=== PATIENT | female | born 1990 | race Caucasian/White ===

== ENCOUNTER → 2024-03-02 | Outpatient (CLI) | payer BC, SELFPAY ==
[2024-03-05 22:06] LABS: Chlamydia By Nucleic Acid AMP Negative (Negative); Gonococcus By Nucleic Acid AMP Negative (Negative)
[2024-03-09 17:07] LABS: HPV APTIMA, High Risk Positive (Negative)
== END | disposition home or self-care (01) ==
LOC: LABSPEC 15:03
PROVIDERS: Referring Provider Advanced Practice Midwife; Visit Provider Advanced Practice Midwife
DX: O99.210 Obesity complicating pregnancy, unspecified trimester (principal); E66.01 Morbid (severe) obesity due to excess calories; Z3A.00 Weeks of gestation of pregnancy not specified
CPT/HCPCS: 87086; 87088; 87491; 87591; 87624; 88175; G0145

== ENCOUNTER → 2024-03-30 | Outpatient (CLI) | payer BC, SELFPAY ==
[2024-03-30 11:04] LABS: Absolute Neutrophil Count 7.6 X10^3/uL (2.0-7.7); Basophil# 0.06 X10^3/uL; Basophil% 0.6 % (0-1); Eosinophil# 0.22 X10^3/uL; Eosinophils% 2.2 % (0-5); Hematocrit 37.2 % (37-47); Hemoglobin 12.3 g/dL (12.0-15.0); Lymphocyte % 15.9 % (19-41); Mean Corp Hgb Conc 33.1 g/dL (32-36); Mean Corpuscular Hgb 29.9 pg (27.0-32.0); Mean Corpuscular Volume 90.3 fL (81-99); Mean Platelet Vol. 10.6 fl (6.2-12.0); NRBC Flagged by Analyzer 0 % (0-5); Neutrophil # 7.56 X10^3/uL (2.7-7.7); Neutrophil % 74.9 % (47-70); Platelet Count 332 K/mm3 (150-450); RBC Distribution Width CV 12.7 % (11.6-14.6); RBC Distribution Width SD 41.8 fl (35.1-43.9); Red Blood Count 4.12 M/mm3 (4.2-5.4); White Blood Count 10.1 K/mm3 (4.4-11.0)
[2024-03-30 11:55] LABS: HIV - WCH Non-Reactive (Nonreactive); Hepatitis B Surface Antigen Non-Reactive (Nonreactive); Hepatitis C Antibody Non-Reactive (Nonreactive); Rubella IgG Reactive (Nonreactive); Syphilis Antibodies Non-reactive
[2024-03-30 12:35] LABS: Hemoglobin A1c 5.3 % (3.8-5.6)
== END | disposition home or self-care (01) ==
LOC: WOBLAB 08:29
PROVIDERS: Referring Provider Advanced Practice Midwife; Visit Provider Advanced Practice Midwife
DX: E66.01 Morbid (severe) obesity due to excess calories (principal); O09.90 Supervision of high risk pregnancy, unspecified, unspecified trimester
CPT/HCPCS: 36415; 83036; 85025; 86703; 86762; 86780; 86803; 86850; 86900; 86901; 87340

== ENCOUNTER → 2024-06-22 | Outpatient (CLI) | payer BC, SELFPAY ==
[2024-06-22 12:48] LABS: Absolute Neutrophil Count 9.4 X10^3/uL (2.0-7.7); Basophil# 0.05 X10^3/uL; Basophil% 0.4 % (0-1); Eosinophil# 0.16 X10^3/uL; Eosinophils% 1.4 % (0-5); Hematocrit 35.4 % (37-47); Hemoglobin 11.9 g/dL (12.0-15.0); Lymphocyte % 13.7 % (19-41); Mean Corp Hgb Conc 33.6 g/dL (32-36); Mean Corpuscular Hgb 29.5 pg (27.0-32.0); Mean Corpuscular Volume 87.8 fL (81-99); Mean Platelet Vol. 10.4 fl (6.2-12.0); Monocyte# 0.37 X10^3/uL; Monocyte% 3.2 % (0-10); NRBC Flagged by Analyzer 0 % (0-5); Neutrophil # 9.43 X10^3/uL (2.7-7.7); Neutrophil % 80.6 % (47-70); Platelet Count 338 K/mm3 (150-450); RBC Distribution Width CV 13.9 % (11.6-14.6); Red Blood Count 4.03 M/mm3 (4.2-5.4); White Blood Count 11.7 K/mm3 (4.4-11.0)
[2024-06-22 13:03] LABS: Glucose Challenge Gest 1H 50g 169 mg/dL (70-140)
[2024-06-22 13:26] LABS: HIV - WCH Non-Reactive (Nonreactive); Syphilis Antibodies Non-reactive
== END | disposition home or self-care (01) ==
LOC: BWCLAB 11:25
PROVIDERS: Visit Provider Advanced Practice Midwife
DX: O09.90 Supervision of high risk pregnancy, unspecified, unspecified trimester (principal); Z13.1 Encounter for screening for diabetes mellitus; Z3A.00 Weeks of gestation of pregnancy not specified
CPT/HCPCS: 36415; 82950; 85025; 86703; 86780

== ENCOUNTER → 2024-06-26 | Outpatient (CLI) | payer BC, SELFPAY ==
[2024-06-26 10:20] LABS: Bedside Glucose 106 mg/dL (74-106)
[2024-06-26 10:36] LABS: Glucose GTT-Gestation. Fasting 108 mg/dL (<105)
[2024-06-26 11:29] LABS: Glucose GTT-Gestational 1 Hr 216 mg/dL (<190)
[2024-06-26 12:47] LABS: Glucose GTT-Gestational 2 Hr 168 mg/dL (<165)
[2024-06-26 13:25] LABS: Glucose GTT-Gestational 3 Hr 79 L (<145)
== END | disposition home or self-care (01) ==
PROVIDERS: Referring Provider Advanced Practice Midwife; Visit Provider Advanced Practice Midwife
DX: Z13.1 Encounter for screening for diabetes mellitus (principal)
CPT/HCPCS: 36415; 82951; 82952; 82962

== ENCOUNTER → 2024-08-10 | Outpatient (CLI) | payer BC, SELFPAY ==
--- NOTE | 2024-08-10 15:33 | US_ITS ---
PROCEDURE: BIOPHYSICAL PROFILE REASON FOR EXAM: WELL-BEING. TECHNIQUE: Real-time grayscale and color flow imaging was performed along with routine image documentation. COMPARISON: None. FINDINGS: Breathing Movements: 2 Body Movements: 2 Tone: 2 Amniotic Fluid Volume: 2 TOTAL SCORE: 8 Amniotic Fluid Index:14.4 Largest Fluid Pocket: 4.5 cm. Placenta: Anterior. Heart Rate: 152 bpm. Position: Breech. US/Biophysical Prof W/O Non Stres IMPRESSION: Unremarkable biophysical profile. Reading Location: [facility]
== END | disposition home or self-care (01) ==
LOC: US 15:31
PROVIDERS: Referring Provider Obstetrics & Gynecology; Visit Provider Obstetrics & Gynecology
DX: O24.419 Gestational diabetes mellitus in pregnancy, unspecified control (principal); O99.213 Obesity complicating pregnancy, third trimester; E66.9 Obesity, unspecified; Z3A.32 32 weeks gestation of pregnancy
CPT/HCPCS: 76819

== ENCOUNTER → 2024-08-14 | Outpatient (CLI) | payer BC, SELFPAY ==
--- NOTE | 2024-08-14 08:27 | US_ITS ---
PROCEDURE: BIOPHYSICAL PROF W/O NON STRES REASON FOR EXAM: well-being. TECHNIQUE: Ultrasound imaging of Ultrasound biophysical profile. . COMPARISON: None. FINDINGS: position: Breech heart rate: 152 beats per minute Amniotic fluid: Within normal limits. Largest fluid pocket: 4.5 cm JENNIFER: 14.4 cm Placenta location: Anterior and not low-lying Biophysical profile: Breathing movement 2 Gross body movement 2 tone 2 amniotic fluid volume 2 Total score: 8 /8 US/Biophysical Prof W/O Non Stres IMPRESSION: Normal biophysical profile. Reading Location: [id number]
== END | disposition home or self-care (01) ==
PROVIDERS: Referring Provider Obstetrics & Gynecology; Visit Provider Obstetrics & Gynecology
DX: O24.419 Gestational diabetes mellitus in pregnancy, unspecified control (principal); O99.213 Obesity complicating pregnancy, third trimester; E66.9 Obesity, unspecified; Z3A.32 32 weeks gestation of pregnancy
CPT/HCPCS: 76819

== ENCOUNTER → 2024-08-17 | Outpatient (CLI) | payer BC, SELFPAY ==
[2024-08-17 10:09] LABS: Absolute Lymphocyte Count 1.48 X10^3/uL (0.83-4.51); Absolute Neutrophil Count 8.2 X10^3/uL (2.0-7.7); Basophil# 0.05 X10^3/uL; Basophil% 0.5 % (0-1); Eosinophil# 0.13 X10^3/uL; Eosinophils% 1.3 % (0-5); Hematocrit 37.4 % (37-47); Hemoglobin 12.3 g/dL (12.0-15.0); Lymphocyte # 1.48 X10^3/ul (0.83-4.51); Lymphocyte % 14.3 % (19-41); Mean Corp Hgb Conc 32.9 g/dL (32-36); Mean Corpuscular Hgb 28.9 pg (27.0-32.0); Mean Platelet Vol. 10.5 fl (6.2-12.0); Monocyte# 0.47 X10^3/uL; Monocyte% 4.5 % (0-10); NRBC Flagged by Analyzer 0 % (0-5); Neutrophil # 8.16 X10^3/uL (2.7-7.7); Neutrophil % 78.9 % (47-70); Platelet Count 310 K/mm3 (150-450); RBC Distribution Width CV 14.9 % (11.6-14.6); RBC Distribution Width SD 47.4 fl (35.1-43.9); Red Blood Count 4.25 M/mm3 (4.2-5.4); White Blood Count 10.3 K/mm3 (4.4-11.0)
[2024-08-17 11:09] LABS: AST(SGOT) 33 U/L (<=31); Alanine Aminotransfer ALT/SGPT 23 U/L (<=34); Albumin, Serum 3.3 g/dL (3.5-5.0); Alkaline Phosphatase 118 U/L (35-104); Anion Gap 13 (5-15); BUN 8 mg/dL (4-19); BUN/Creat Ratio 13.9 RATIO (10-20); Calcium 10.3 mg/dL (7.6-11.0); Carbon Dioxide 20.5 mmol/L (22.0-29.0); Chloride 102 mmol/L (96-108); Creatinine, Serum 0.57 mg/dL (0.70-1.20); EST Glomerular Filtration Rate 125 (>60); Globulin 3.4 g/dL (2.2-4.2); Glucose 103 mg/dL (70-99); Potassium 3.9 mmol/L (3.3-5.1); Protein, Total 6.7 g/dL (5.9-8.4); Sodium Level 136 mmol/L (133-145); Total Bilirubin 0.24 mg/dL (0.00-1.30)
[2024-08-17 11:17] LABS: Protein, Urine (Random) 14.3 mg/dL (0.0-12.0); Protein:Creat Ratio 131 mg/g CRE (0-200)
== END | disposition home or self-care (01) ==
LOC: BWCLAB 09:45
PROVIDERS: Referring Provider Registered Nurse; Visit Provider Registered Nurse
DX: O09.90 Supervision of high risk pregnancy, unspecified, unspecified trimester (principal); Z3A.00 Weeks of gestation of pregnancy not specified
CPT/HCPCS: 36415; 80053; 82570; 84156; 85025

== ENCOUNTER → 2024-08-17 | Outpatient (CLI) | payer BC, SELFPAY ==
--- NOTE | 2024-08-17 12:06 | US_ITS ---
PROCEDURE: BIOPHYSICAL PROF W/O NON STRES REASON FOR EXAM: well-being. TECHNIQUE: Biophysical profile was obtained. COMPARISON: Comparison is made with prior study dated August 14, 2024. FINDINGS: Single live gestation with a transverse left lie. heart rate: 135 beats per minute : Normal amniotic fluid. Largest fluid pocket measures 7.1 cm. Amniotic fluid index: 18.8 cm. Placenta lies along the anterior wall and is not low-lying. Biophysical profile: Breathing movement: 2 Gross body movements: 2 tone: 2 amniotic fluid volume: 2 total score 8 on 8 US/Biophysical Prof W/O Non Stres IMPRESSION: Normal biophysical profile. Reading Location: [facility]
== END | disposition home or self-care (01) ==
LOC: US 12:06
PROVIDERS: Referring Provider Obstetrics & Gynecology; Visit Provider Obstetrics & Gynecology
DX: O24.419 Gestational diabetes mellitus in pregnancy, unspecified control (principal); O99.213 Obesity complicating pregnancy, third trimester; Z3A.33 33 weeks gestation of pregnancy
CPT/HCPCS: 76819

== ENCOUNTER → 2024-08-21 | Outpatient (CLI) | payer BC, SELFPAY ==
--- NOTE | 2024-08-21 07:59 | US_ITS ---
PROCEDURE: BIOPHYSICAL PROF W/O NON STRES REASON FOR EXAM: well-being. TECHNIQUE: Biophysical profile. COMPARISON: Prior study dated August 17, 2024. FINDINGS: The fetus is in the right oblique position. Amniotic fluid is within normal limits. Placenta is anterior and not low-lying. Biophysical profile: Breathing movements: 2 Gross body movements: 2 tone: 2 amniotic fluid volume: 2 Biophysical profile total score of 8/8 US/Biophysical Prof W/O Non Stres IMPRESSION: Biophysical profile of 8/8. Reading Location: [id number]
== END | disposition home or self-care (01) ==
PROVIDERS: Referring Provider Obstetrics & Gynecology; Visit Provider Obstetrics & Gynecology
DX: O24.419 Gestational diabetes mellitus in pregnancy, unspecified control (principal); O99.213 Obesity complicating pregnancy, third trimester; E66.9 Obesity, unspecified; Z3A.33 33 weeks gestation of pregnancy
CPT/HCPCS: 76819

== ENCOUNTER → 2024-08-24 | Outpatient (CLI) | payer BC, SELFPAY ==
--- NOTE | 2024-08-24 08:05 | US_ITS ---
PROCEDURE: BIOPHYSICAL PROF W/O NON STRES REASON FOR EXAM: well-being. TECHNIQUE: Biophysical profile examination was obtained. COMPARISON: Comparison is made with prior sonogram dated August 21, 2024. FINDINGS: position: Cephalic and variable. heart rate: 136 beats per minute Amniotic fluid within normal limits. Largest fluid pocket measures 6.5 cm. Amniotic fluid index: 18.9 Placenta location: Anterior Biophysical profile: Breathing movements: 2 Gross body movements: 2 tone: 2 amniotic fluid volume: 2 Total score: 8/8 US/Biophysical Prof W/O Non Stres IMPRESSION: Biophysical profile with a score of 8/8 Reading Location: [facility]
== END | disposition home or self-care (01) ==
LOC: OPUS 08:03
PROVIDERS: Referring Provider Obstetrics & Gynecology; Visit Provider Obstetrics & Gynecology
DX: O24.419 Gestational diabetes mellitus in pregnancy, unspecified control (principal); O99.213 Obesity complicating pregnancy, third trimester; Z3A.34 34 weeks gestation of pregnancy
CPT/HCPCS: 76819

== ENCOUNTER → 2024-08-28 | Outpatient (CLI) | payer BC, SELFPAY ==
--- NOTE | 2024-08-28 09:07 | US_ITS ---
PROCEDURE: BIOPHYSICAL PROF W/O NON STRES REASON FOR EXAM: WELL BEING TECHNIQUE: Biophysical profile was obtained. COMPARISON: Comparison is made with prior study dated August 24, 2024. FINDINGS: position: Cephalic heart rate: 133 beats per minute Amniotic fluid: Within normal limits. Largest fluid pocket 6 cm. Amniotic fluid index 15.3. Placenta location: Anterior and not low-lying. Biophysical profile: Breathing movements 2 Gross body movements 2 tone 2 Amniotic fluid 2 Total score: 8/8 US/Biophysical Prof W/O Non Stres IMPRESSION: Normal biophysical profile of 8/8 Reading Location: [facility] [place]
== END | disposition home or self-care (01) ==
LOC: OPUS 09:07
PROVIDERS: Referring Provider Obstetrics & Gynecology; Visit Provider Obstetrics & Gynecology
DX: O99.210 Obesity complicating pregnancy, unspecified trimester (principal); O24.419 Gestational diabetes mellitus in pregnancy, unspecified control
CPT/HCPCS: 76819

== ENCOUNTER 2024-08-31 10:20 | Outpatient (CLI) | payer BC, SELFPAY ==
[2024-08-31] VITALS (13 sets, daily range): BP systolic 126–148; BP diastolic 56–100; PULSE 77–109; RESP 18; TEMP 35.9–36.2; BMI 56.0
[2024-08-31 11:17] LABS: Hematocrit 34.9 % (37-47); Hemoglobin 11.5 g/dL (12.0-15.0); Mean Corpuscular Hgb 29.3 pg (27.0-32.0); Mean Corpuscular Volume 88.8 fL (81-99); Platelet Count 267 K/mm3 (150-450); RBC Distribution Width CV 14.4 % (11.6-14.6); RBC Distribution Width SD 46.1 fl (35.1-43.9); Red Blood Count 3.93 M/mm3 (4.2-5.4); White Blood Count 9.1 K/mm3 (4.4-11.0)
[2024-08-31 11:57] LABS: AST(SGOT) 33 U/L (<=31); Alanine Aminotransfer ALT/SGPT 20 U/L (<=34); Creatinine, Serum 0.78 mg/dL (0.70-1.20); EST Glomerular Filtration Rate 104 (>60)
[2024-08-31 12:41] LABS: Uric Acid 5.4 mg/dL (2.6-6.0)
[2024-08-31 13:33] LABS: Protein, Urine (Random) 25.3 mg/dL (0.0-12.0); Protein:Creat Ratio 137 mg/g CRE (0-200)
--- NOTE | 2024-09-01 21:51 | OB.TRI.PN ---
Progress Notes Date of Service: 08/31/24 Progress Note: Patient presents for triage evaluation secondary to elevate dbps FHT: 130-140 Moderate variability reactive isolated questionable late deceleration overall category I tracing [place]: isolated Contractions Assessment and plan: 35 weeks elevate dbp prolonged monitoring, 8/ bpp overall reassuring, dc home fu for repeat testing tomorrow Reactive NST, reassuring maternal and status patient discharged to home to follow-up tomorrow. See problem list details for additional plan information. Laboratory Studies: Laboratory Tests 08/31/24 08/31/24 Range/Units 12:15 11:10 WBC 9.1 (4.4-11.0) K/mm3 RBC 3.93 L (4.2-5.4) M/mm3 Hgb 11.5 L (12.0-15.0) g/dL Hct 34.9 L (37-47) % MCV 88.8 (81-99) fL MCH 29.3 (27.0-32.0) pg MCHC 33.0 (32-36) g/dL RDW Std Deviation 46.1 H (35.1-43.9) fl RDW Coeff of Martin 14.4 (11.6-14.6) % Plt Count 267 (150-450) K/mm3 MPV 11.0 (6.2-12.0) fl Creatinine 0.78 (0.70-1.20) mg/dL Estim Creat Clear Calc 146.50 (50-250) ml/min Est GFR (MDRD) Non-Af 104 (>60) Uric Acid 5.4 (2.6-6.0) mg/dL AST 33 H (<=31) U/L ALT 20 (<=34) U/L U Random Total Protein 25.3 H (0.0-12.0) mg/dL Urine Creatinine 185.00 (28-217) mg/dL Protein/Creatinin Ratio 137 (0-200) mg/g CRE Charges/Coding Procedures Urinary/Genital 52xxx-59xxx: 16610-08 non-stress test Interp Assessment & Plan (1) Elevated blood-pressure reading without diagnosis of hypertension: COMMENT: seen in triage 08/29/13, elevated bps in office al lnormal bps on l and d and labs stable. fu in office next week (2) Late deceleration of heart rate: COMMENT: 01/25 bpp, fu tomorrow for repeat bpp
== END 2024-08-31 16:32 | disposition home or self-care (01) ==
LOC: WPOUT 10:26 → WP 10:26
PROVIDERS: Referring Provider Obstetrics & Gynecology; Visit Provider Obstetrics & Gynecology
DX: O26.893 Other specified pregnancy related conditions, third trimester (principal); R03.0 Elevated blood-pressure reading, without diagnosis of hypertension; Z3A.35 35 weeks gestation of pregnancy; O36.8330 Maternal care for abnormalities of the fetal heart rate or rhythm, third trimester, not applicable or unspecified
CPT/HCPCS: 36415; 59025; 59050; 82565; 82570; 84156; 84450; 84460; 84550; 85027; 99221; G0378

== ENCOUNTER → 2024-08-31 | Outpatient (CLI) | payer BC, SELFPAY ==
--- NOTE | 2024-08-31 07:58 | US_ITS ---
PROCEDURE: BIOPHYSICAL PROF W/O NON STRES REASON FOR EXAM: WELL BEING TECHNIQUE: Biophysical profile was obtained. COMPARISON: Comparison is made with prior study dated August 28, 2024. FINDINGS: position: Cephalic heart rate: 144 beats per minute. Amniotic Fluid: Largest fluid pocket measures 5.6 cm. Amniotic fluid index: 19.9 cm. Placenta location: Anterior and not low-lying. Biophysical profile: Breathing movements 2 Gross body movements: 2 tone: 2 Amniotic fluid volume: 2 Total biophysical score: 8/8 US/Biophysical Prof W/O Non Stres IMPRESSION: Normal biophysical profile. Reading Location: [facility]
== END | disposition home or self-care (01) ==
LOC: US 07:56
PROVIDERS: Referring Provider Obstetrics & Gynecology; Visit Provider Obstetrics & Gynecology
DX: O24.419 Gestational diabetes mellitus in pregnancy, unspecified control (principal); O99.213 Obesity complicating pregnancy, third trimester; Z3A.35 35 weeks gestation of pregnancy
CPT/HCPCS: 76819

== ENCOUNTER 2024-09-01 08:05 | Outpatient (CLI) | payer BC, SELFPAY ==
--- NOTE | 2024-09-01 08:18 | US_ITS ---
PROCEDURE: BIOPHYSICAL PROF W/O NON STRES REASON FOR EXAM: NON-REACTIVE NST TECHNIQUE: Ultrasound imaging of intrauterine gestation. COMPARISON: Reviewed FINDINGS: Single live intrauterine gestation is identified. BREECH POSITION IS NOTED. heart rate averages 141 beats per minute. Amniotic fluid measurement is normal with the largest pocket measuring 5.1 cm, for a total amniotic fluid index of 16.9. Placenta location is anterior, not low lying. Placental grade 3 with complete indentations of chorionic plate through to the basilar plate causing placental separation with more irregular calcifications and significant shadowing. Biophysical profile total score 8/8. age by LMP 35 weeks 6 days, estimated delivery date by LMP 09/30/2024. DOPPLER: Color Doppler: Normal color flow doppler signal Spectral Doppler: Normal arterial inflow and venous outflow signal US/Biophysical Prof W/O Non Stres IMPRESSION: Breech position with a placental grade of 3, as described above. [facility]
[2024-09-01 08:33] VITALS: BP 143/94; PULSE 105; PULSE 108; RESP 16; TEMP 37.2; O2SAT 98
[2024-09-01 08:34] VITALS: PULSE 108; O2SAT 96
--- NOTE | 2024-09-01 09:44 | OB.TRI.PN_ITS ---
Progress Notes Date of Service: 09/01/24 Progress Note: Patient presents for triage evaluation secondary to follow up testing FHT: 140 Moderate variability reactive no decelerations category I tracing [place]: no regular Contractions Assessment and plan: heart rate deceleration 35 weeks Reactive NST, reassuring maternal and status patient discharged to home to follow-up tuesday/tuesday. See problem list details for additional plan information. Charges/Coding Procedures Urinary/Genital 52xxx-59xxx: 75887-54 non-stress test Interp
[2024-09-01 11:41] VITALS: BP 145/80; PULSE 111
[2024-09-01 11:52] VITALS: BP 137/74; PULSE 101
[2024-09-01 12:02] VITALS: BP 136/67; PULSE 107
== END 2024-09-01 12:20 | disposition home or self-care (01) ==
LOC: WPOUT 08:13 → WP 08:13
PROVIDERS: Referring Provider Obstetrics & Gynecology; Visit Provider Obstetrics & Gynecology
DX: O36.8330 Maternal care for abnormalities of the fetal heart rate or rhythm, third trimester, not applicable or unspecified (principal); Z3A.35 35 weeks gestation of pregnancy
CPT/HCPCS: 59025; 59050; 76819; 99221; G0378

== ENCOUNTER 2024-09-04 09:00 | Outpatient (CLI) | payer BC, SELFPAY ==
[2024-09-04] VITALS (9 sets, daily range): BP systolic 121–142; BP diastolic 69–93; PULSE 89–102; RESP 16; BMI 55.7
[2024-09-04 11:03] LABS: Hematocrit 35.9 % (37-47); Hemoglobin 12.2 g/dL (12.0-15.0); Mean Corpuscular Hgb 29.6 pg (27.0-32.0); Mean Corpuscular Volume 87.1 fL (81-99); Mean Platelet Vol. 10.7 fl (6.2-12.0); Platelet Count 285 K/mm3 (150-450); RBC Distribution Width CV 14.6 % (11.6-14.6); RBC Distribution Width SD 46.2 fl (35.1-43.9); Red Blood Count 4.12 M/mm3 (4.2-5.4); White Blood Count 10.4 K/mm3 (4.4-11.0)
[2024-09-04 11:22] LABS: AST(SGOT) 28 U/L (<=31); Alanine Aminotransfer ALT/SGPT 18 U/L (<=34); Creatinine, Serum 0.63 mg/dL (0.70-1.20); EST Glomerular Filtration Rate 121 (>60); Estimated Creatinine Clearance 180.96 ml/min (50-250)
[2024-09-04 11:53] LABS: Protein, Urine (Random) 40.5 mg/dL (0.0-12.0); Protein:Creat Ratio 448 mg/g CRE (0-200)
--- NOTE | 2024-09-04 11:55 | OB.TRI.HP_ITS ---
HPI - General General Date of Admission: 09/04/24 Date of Service: 09/04/24 HPI Narrative BRITTANY LARSON, is a 33 y/o @ 36 weeks 2 days who presents to L&D for pre- eclampsia rule out. While in the office today her blood pressures were 160's/90's. She denies headaches, visual changes, or epigastric pain other than some persistent indigestion. Blood pressures here are low normal at 120's/ 70's. Per protein:cr ratio is 320 and other labs are all normal. Her glucose log is reviewed and normal on metformin and insulin. We discussed steroids for lung development and the risks vs benefits. She would like to have the steroids. Maternal Data Information JANI Calculator Estimated Delivery Date Method Current WG Current Estimate 09/30/24 LMP (Certain) 36w 2d Other Estimates 10/03/24 Ultrasound #1 35w 6d [facility] Medical History Abnormal glucose affecting Egg donor Home Medications ?Medication ?Instructions ?Recorded ?Last Taken ?Type PNV 153-FA 400 mcg-om3 35 mg-dha 1 tab PO DAILY 08/31/24 08:00 History 25 mg-epa 5 mg-fish oil chew tablet 1 TAB blood sugar diagnostic (Blood #120 ea 06/27/24 Unknown Rx Glucose Test strips) blood-glucose meter #1 ea 06/27/24 Unknown Rx lancets #200 ea 06/27/24 Unknown Rx metformin 1,000 mg tablet 1,000 mg PO .at HS 07/20/24 08/30/24 22:00 History 1,000 mg insulin glargine 100 unit/mL (3 17 unit subcut Q 08/30/24 21:00 History mL) subcutaneous pen (Lantus 17 units Solostar U-100 Insulin) metformin 1,000 mg tablet 500 mg PO QDAY 08/31/2408/18 07:00 History 500 mg Allergy/AdvReac Type Severity Reaction Status Date / Time No Known Allergies Allergy Verified 09/04/24 09:42 Family History Grandfather Cancer Paternal- Prostate Alzheimer's dementia Maternal Grandmother Cancer, Onset Age: 75 Maternal cervical Surgical History Sh[place] teeth extracted Social History adopted: No household members: spouse and children number of children: 2 current occupational status: employed 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 exposures/hazards: No pets and animals: Yes (Avoid litterbox) pets and animals: cat(s), dog(s), fish and iguana(s) history of recent travel: Yes (- January) out of state: Yes out of country: No sexually active: Yes Smoking Status: Former smoker quit date: 09/19/23 Electronic Cigarette Use: with nicotine alcohol intake: current alcohol intake frequency: holidays/special occasions only Alcohol type: beer details: Not while substance use type: does not use well-balanced diet: daily or most days caffeine: No eating out: 1-3 times/week during the past year weight has: increased > 10 lbs what type of physical activity do you participate in: walking frequency: 1-2 times per week duration: 15-30 minutes/day abby/yazidism: Taoism seatbelt use: always do you feel safe at home: Yes additional social history: - Cole- Maintenance History 3 Elective abortions Hx Para 2 Spontaneous abortions Hx # Term Pregnancies Ectopic pregnancies Hx # Pregnancies Multiple births # of living children 2 Past Pregnancies Del. Date Name GA/Weeks Outcome Route Bth Weight Infant Gen Labor Lgth Anesthesia Del [facility] Provider FOB 01/27/13 Oliva Tsai 40 live - full term 6#1oz Femal e 14 hours [facility] Dr[facility]Weeman Hesham Tsai 05/13/14 Leticia Tsai 40 live - full term 7#12oz F emale [address] [facility] [address] Carolee Tsai Delivery Date: 05/13/14 Last Updated by: Carin Ramos IOL Visit Details Expected Delivery Route/Plan Labor Preferences- CB/BF classes: [] labor support person: [] labor intervention preferences: [] pain management options preferred: [] cut cord/dad catch: [] : [] PP control planned: [] discussed possible routes of delivery and associated risks: [] special requests: [] Plans Covid status: [] Flu vaccine: [] Tdap vaccine: [] Rhogam: [] LARC form signed: [] Problem list reviewed and updated with the most current plan of care details and appropriate orders placed. Relevant counseling for the gestational age provided. Continue routine care and follow up unless otherwise noted in visit notes/problem list details OB Flowsheet Initial Weight: 267 lb Date -?-?-?-?-?-?-?-?-?-?-?-?- EGA Weight BP Urine Prot -?--?-?-?-?-?-?-?-?-?-?-?- Glucose FHR FuHt Pres Dilation -?-?-?-?-?-?-?--?-?-?-?-?- Effaced St Visit Note 03/02/24 -?-?-?-?-?-?-?-?-?-?-?-?- 9w 5d 267 lb 8 oz (+8 oz) -?-?-?-?-?-?-?-?-?-?-?-?- 180 -?-?-?-?-?-?-?-?-?-?-?-?- KW- CRL cons wit h dates. undecided on NIPT- will call office if decides she wants this. 03/30/24 -?-?-?-?-?-?-?-?-?-?-?-?- 13w 5d 272 lb 4 oz (+5 lb 4 oz) 106/77 Negative -?-?-?-?-?-?-?-?-?-?-?-?- Negative 153 -?-?-?-?-?-?-?-?-?-?-?-?- Kw- no vb/crampi ng. using cpap and feeling better. anatomy US ordered. labs today. Kw- no vb/cramping. using cp ap and feeling better. anatomy US ordered. labs today. AFP discussed 05/25/24 -?-?-?-?-?-?-?-?-?-?-?-?- 21w 5d 284 lb (+17 lb) 125/83 Negative -?-?-?-?--?-?-?-?-?-?-?-?- Negative 145 -?-?-?-?-?-?-?-?-?-?-?-?- KW- no vb/lof/ct x. normal anatomy US. Discussed growth US and BPPS. 28 week labs discussed. 06/22/24 -?-?-?-?-?-?-?-?-?-?-?-?- 25w 5d 290 lb 4 oz (+23 lb 4 oz) 132/77 -?-?-?-?-?-?-?-?-?-?-?-?- 145 -?-?-?-?-?-?-?-?-?-?-?-?- KW- no vb/lof/ct x. good fm. 28 week labs today 07/06/24 -?-?-?-?-?-?-?-?-?-?-?-?- 27w 5d 292 lb (+25 lb) 138/82 Negative -?-?-?-?-?-?-?-?-?-?-?-?- Negative 140 27 -?-?-?-?-?-?-?-?-?-?-?-?- LC- no vb/ctx/lo f. good fm. all fastings >95 except 1. to start Metformin 500mg qHS. all PP under 120 except x1. to schedule growth scans 07/20/24 -?-?-?-?-?-?-?-?-?-?-?-?- 29w 5d 297 lb (+30 lb) 121/65 Negative -?-?-?-?-?-?-?-?-?-?--?-?- Negative 140 29 -?-?-?-?-?-?-?-?-?-?-?-?- LC - fasting elevated, just increased metformin to 1500 daily on tuesday to reeval on tuesday. as fasting is good today and all pp yesterday good per SM. 07/23/24 -?-?-?-?-?-?-?-?-?-?-?-?- 30w 1d 294 lb 6 oz (+27 lb 6 oz) 129/84 Negative -?-?-?-?-?-?-?-?-?-?-?-?- Negative 140 -?-?-?-?-?-?-?-?-?-?-?-?- KW- fastings ove r the weekend were under 95 PP were all under 120. will continue to monitor and come back later in the week to review numbers. Is calling nutrition to get set up. FMLA papers to triage 08/02/24 -?-?-?-?-?-?-?-?-?-?-?-?- 31w 4d 296 lb 8 oz (+29 lb 8 oz) 128/84 Negative -?-?-?-?-?-?-?-?-?-?-?-?- Negative 141 33 -?-?-?-?-?-?-?-?-?-?-?-?- JV- fasting gluc ose levels are elevated despite use of 1500mg of metformin daily. will add 15 units of lantus. start twice weekly bpp's for obesity and uncontrolled dm. has growth scan next week also. needs to see physicians more 08/17/24 -?-?-?-?-?-?-?-?-?-?-?-?- 33w 5d 307 lb 2 oz (+40 lb 2 oz) 153/91 117/90 134/84 Negative -?-?-?-?-?-?-?-?-?-?-?-?- Negative 143 33 -?-?-?-?-?-?-?-?-?-?-?-?- LC- at 17u, all under 95 except 1 after adjustment. all pp good. denies reese/visual changes/ruq pain. LC- at 17u, all under 95 exc ept 1 after adjustment. all pp good. denies reese/visual changes/ruq pain, but having increased swelling. obtaining pec labs. 08/31/24 -?-?-?-?-?-?-?-?-?-?-?-?- 35w 5d 317 lb 2 oz (+50 lb 2 oz) 148/96 Trace -?-?-?-?-?-?-?-?-?-?-?-?- Negative -?-?-?-?-?-?-?-?-?-?-?-?- SM- to l and d f or evaluation ROS Constitutional Constitutional: Reports systems reviewed and no addt'l complaints, except as documented Gastrointestinal Gastrointestinal: Denies bloating, constipation, cramping, diarrhea, nausea or vomiting Genitourinary Genitourinary: Reports other Details: Denies vaginal odor, vaginal bleeding, or vaginal discharge ; Denies difficulty urinating or flank pain Physical Exam HEENT normocephalic Resp normal respiratory effort and normal air movement no CVA tenderness Extremity normal to inspection General Extremity: edema bilateral (trace ) NST FHR Rate Baby A Baseline: 140 Variability:: Moderate Accelerations:: 15 x 15 Decelerations:: None NST Reactive:: Yes FHR Category:: Category I Assessment & Plan (1) Mild pre-eclampsia: (2) Elevated blood-pressure reading without diagnosis of hypertension: COMMENT: seen in triage 08/29/13, elevated bps in office al lnormal bps on l and d and labs stable. fu in office next week (3) Breech presentation of fetus: COMMENT: at 33 weeks - rescan 35- 36 weeks (4) Gestational diabetes mellitus (GDM) affecting , antepartum: COMMENT: nutrition consult and testing 4x daily. metformin 500mg AM + 1,000PM on 07/18 lantus 15 units hs - twice weekly nsts and growth at 32 and 36 weeks. deliver no later than 39 weeks. (5) Sleep apnea: COMMENT: c-pap (6) Obesity during : COMMENT: BMI 47. HgbA1c nl. encouraged healthy weight gain. recommend growth US 32 and 36 weeks w/MFM, weekly BPP 34 weeks on (7) LGSIL on Pap smear of cervix: COMMENT: 2015- no follow up 2023 NOB LSIL and +HPV. Colpo done, CIN1 visually. repeat pap PP. (8) Supervision of high-risk : COMMENT: PRR,, JANI 09/30/24, Leticia Kitchen [facility] (9) : QUALIFIERS: Weeks of gestation: 36 weeks Qualified Code(s): Z3A.36 - 36 weeks gestation of COMMENT: normal anatomy, discussed genetic, ntd, & carrier testing declined. PLAN: Plan planning 37 week delivery bedrest at home, call if severe features develop return to office tuesday for follow up patient wants steroids - we discussed disruption in glucose levels. Charges/Coding Multi Select Codes Visit Charges Office Visit/Consults: 51859 OV L3 Est 20min Urinary/Genital Urinary/Genital CPT Codes: 97360-64 non-stress test Interp
[2024-09-04 11:56] LABS: LDH 211 U/L (84-246)
[2024-09-04 11:59] LABS: Uric Acid 5.9 mg/dL (2.6-6.0)
[2024-09-04] MEDS: Betamethasone/Betamethasone 30 MG/5 ML Vial 12 MG IM (12:23)
== END 2024-09-04 16:34 | disposition home or self-care (01) ==
LOC: WPOUT 09:13 → WP 09:14
PROVIDERS: Referring Provider Obstetrics & Gynecology; Visit Provider Obstetrics & Gynecology
DX: O14.03 Mild to moderate pre-eclampsia, third trimester (principal); O24.414 Gestational diabetes mellitus in pregnancy, insulin controlled; O99.213 Obesity complicating pregnancy, third trimester; O32.1XX0 Maternal care for breech presentation, not applicable or unspecified; O99.353 Diseases of the nervous system complicating pregnancy, third trimester; G47.30 Sleep apnea, unspecified; Z3A.36 36 weeks gestation of pregnancy; Z79.899 Other long term (current) drug therapy
CPT/HCPCS: 36415; 59050; 82565; 82570; 83615; 84156; 84450; 84460; 84550; 85027; 96372; 99221; G0378; J0702

== ENCOUNTER → 2024-09-04 | Outpatient (CLI) | payer BC, SELFPAY ==
[2024-09-04 09:46] LABS: Protein, Urine (Random) 33.9 mg/dL (0.0-12.0); Protein:Creat Ratio 320 mg/g CRE (0-200)
== END | disposition home or self-care (01) ==
LOC: LABSPEC 08:59
PROVIDERS: Referring Provider Obstetrics & Gynecology; Visit Provider Obstetrics & Gynecology
DX: O09.90 Supervision of high risk pregnancy, unspecified, unspecified trimester (principal); R03.0 Elevated blood-pressure reading, without diagnosis of hypertension; Z3A.00 Weeks of gestation of pregnancy not specified
CPT/HCPCS: 82570; 84156

== ENCOUNTER 2024-09-05 12:15 | Outpatient (CLI) | payer BC, SELFPAY ==
[2024-09-05 12:43] VITALS: BMI 55.3
[2024-09-05] MEDS: Betamethasone/Betamethasone 30 MG/5 ML Vial 12 MG IM (12:44)
--- NOTE | 2024-09-05 22:54 | OB.TRI.PN ---
Progress Notes Date of Service: 09/05/24 Progress Note: celestone shot given for prematurity preeclampsia 36 weeks dc home
== END 2024-09-05 12:58 | disposition home or self-care (01) ==
LOC: WPOUT 12:23 → WP 12:24
PROVIDERS: Referring Provider Obstetrics & Gynecology; Visit Provider Obstetrics & Gynecology
DX: O14.93 Unspecified pre-eclampsia, third trimester (principal); Z3A.36 36 weeks gestation of pregnancy
CPT/HCPCS: 96372; 99221; G0378; J0702

== ENCOUNTER 2024-09-07 11:06 | Inpatient (IN) | payer BC, SELFPAY ==
[2024-09-07] VITALS (38 sets, daily range): BP systolic 109–180; BP diastolic 66–100; PULSE 85–106; RESP 16–19; TEMP 35.9–37; O2SAT 95–100; BMI 55.8
--- NOTE | 2024-09-07 09:17 | US_ITS ---
PROCEDURE: BIOPHYSICAL PROF W/O NON STRES REASON FOR EXAM: WELL BEING TECHNIQUE: Biophysical profile study. COMPARISON: Comparison is made with prior study dated September 01, 2024. FINDINGS: position: Breech heart rate: 142 beats per minute Amniotic fluid within normal limits. Largest fluid pocket: 6.16 cm. Amniotic fluid index 20.8 cm. Placenta location: Anterior and not low-lying. Age by LMP: 36 weeks and 5 days. Biophysical profile: Breathing movements 2 Gross body movements 2 tone: 2 amniotic fluid volume: 2 Total score: 8/8 US/Biophysical Prof W/O Non Stres IMPRESSION: Normal biophysical profile with a score of 8/8. Reading Location: [facility]
[2024-09-07 10:49] LABS: Protein, Urine (Random) 71.4 mg/dL (0.0-12.0); Protein:Creat Ratio 467 mg/g CRE (0-200)
[2024-09-07] MEDS: Lactated Ringers 1,000 ML 999 ML IV (11:20)
[2024-09-07] MEDS: Lactated Ringers 1,000 ML 50 ML IV (11:26)
[2024-09-07] MEDS: Acetaminophen 500 MG Tablet 1000 MG PO ×2 (11:37→17:51)
[2024-09-07] MEDS: Magnesium Sulfate 4gm/100mL 4 GM/100 ML IV.SOLN. IV (11:37)
[2024-09-07 11:47] LABS: Bedside Glucose 83 mg/dL (74-106)
[2024-09-07] MEDS: Magnesium Sulfate 4gm/100mL 2 GM/50 ML IV.SOLN. IV (11:53)
[2024-09-07] MEDS: Sodium Citrate/Citric Acid 30 ML UDC PO (11:53)
[2024-09-07 11:54] LABS: Hematocrit 35.4 % (37-47); Mean Corp Hgb Conc 33.9 g/dL (32-36); Mean Corpuscular Hgb 29.8 pg (27.0-32.0); Mean Corpuscular Volume 87.8 fL (81-99); Mean Platelet Vol. 11.2 fl (6.2-12.0); Platelet Count 308 K/mm3 (150-450); RBC Distribution Width CV 14.6 % (11.6-14.6); RBC Distribution Width SD 47.1 fl (35.1-43.9); Red Blood Count 4.03 M/mm3 (4.2-5.4); White Blood Count 13.1 K/mm3 (4.4-11.0)
[2024-09-07] MEDS: Magnesium Sulfate 20 GM/500 ML BAG IV ×2 (12:08→23:00)
[2024-09-07 12:25] LABS: Alanine Aminotransfer ALT/SGPT 19 U/L (<=34); Creatinine, Serum 0.55 mg/dL (0.70-1.20); EST Glomerular Filtration Rate 126 (>60)
[2024-09-07] MEDS: Cefazolin 3 GM in Syringe 1 EACH IV (12:25)
[2024-09-07 12:35] LABS: Syphilis Antibodies Nonreactive (Nonreactive)
[2024-09-07 13:30] LABS: AST(SGOT) 26 U/L (<=31); Uric Acid 6.5 mg/dL (2.6-6.0)
--- NOTE | 2024-09-07 14:10 | NURSING ---
see mag flowsheet for vs also
[2024-09-07] MEDS: Oxytocin 15 Units/NS 250ml 15 UNITS/250 ML IV.SOLN 83 UNITS IV (14:46)
[2024-09-07] MEDS: Ketorolac 30 MG/ML Syringe IV ×2 (14:46→21:08)
[2024-09-07] MEDS: HYDROmorphone 1 MG/ML Syringe IV (14:52)
[2024-09-07 15:39] LABS: Bedside Glucose 77 mg/dL (74-106)
[2024-09-07] MEDS: Lactated Ringers 1,000 ML 25 ML IV (16:35)
--- NOTE | 2024-09-07 18:13 | HP.PCM.OB_ITS ---
HPI - General General Date of Admission: 09/07/24 HPI Narrative BRITTANY LARSON, is a 33 F who presents with severe preeclampsia severely elevated bps in the office and no reese or bv, has had diabetes in the and mild preeclampsia until today Maternal Data Information JANI Calculator Estimated Delivery Date Method Current WG Current Estimate 09/30/24 LMP (Certain) 36w 5d Other Estimates 10/03/24 Ultrasound #1 36w 2d PFSH PFSH Medical History (Updated 09/07/24 @ 18:[address] Minoo Fontaine MD) Pre-eclampsia Gestational diabetes Abnormal glucose affecting Egg donor Home Medications ?Medication ?Instructions ?Recorded ?Last Taken ?Type PNV 153-FA 400 mcg-om3 35 mg-dha 1 tab PO DAILY pregna ncy 02/29/24 09/06/24 History 25 mg-epa 5 mg-fish oil chew tablet blood sugar diagnostic (Blood #120 ea 06/27/24 Unknown Rx Glucose Test strips) blood-glucose meter #1 ea 06/27/24 Unknown Rx lancets #200 ea 06/27/24 Unknown Rx metformin 1,000 mg tablet 1,000 mg PO .at HS GDM 07/2009/06/24 History insulin glargine 100 unit/mL (3 19 unit subcut QHS GDM 08/31/24 09/06/24 History mL) subcutaneous pen (Lantus Solostar U-100 Insulin) metformin 1,000 mg tablet 500 mg PO QDAY GDM 08/31/24 09/06/24 History Allergy/AdvReac Type Severity Reaction Status Date / Time No Known Allergies Allergy Verified 09/07/24 10:51 Family History Grandfather Cancer Paternal- Prostate Alzheimer's dementia Maternal Grandmother Cancer, Onset Age: 75 Maternal cervical Surgical History [place] teeth extracted Social History adopted: No household members: spouse and children number of children: 2 current occupational status: employed 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 [employer] current occupational exposures/hazards: No pets and animals: Yes (Avoid litterbox) pets and animals: cat(s), dog(s), fish and iguana(s) history of recent travel: Yes (- January) out of state: Yes out of country: No sexually active: Yes Smoking Status: Former smoker quit date: 09/19/23 Electronic Cigarette Use: with nicotine alcohol intake: current alcohol intake frequency: holidays/special occasions only Alcohol type: beer details: Not while substance use type: does not use well-balanced diet: daily or most days caffeine: No eating out: 1-3 times/week during the past year weight has: increased > 10 lbs what type of physical activity do you participate in: walking frequency: 1-2 times per week duration: 15-30 minutes/day abby/rastafari: Jain seatbelt use: always do you feel safe at home: Yes additional social history: - Cole- Maintenance History 3 Elective abortions Hx Para 2 Spontaneous abortions Hx # Term Pregnancies Ectopic pregnancies Hx # Pregnancies Multiple births # of living children 2 Past Pregnancies Del. Date Name GA/Weeks Outcome Route Bth Weight Gen Labor Lgth Anesthesia Del [facility] Provider FOB 01/27/13 Oliva Tsai 40 live - full term 6#1oz Femal e 14 hours epidural [facility] Dr.Weeman Hesham Tsai 05/13/14 Leticia Tsai 40 live - full term 7#12oz F emale 10 hrs epidural [facility] Dr. Carolee Tsai Delivery Date: 05/13/14 Last Updated by: Carin Ramos IOL Visit Details Expected Delivery Route/Plan Labor Preferences- CB/BF classes: [] labor support person: [] labor intervention preferences: [] pain management options preferred: [] cut cord/dad catch: [] : [] PP control planned: [] discussed possible routes of delivery and associated risks: [] special requests: [] Plans Covid status: [] Flu vaccine: [] Tdap vaccine: [] Rhogam: [] LARC form signed: [] Problem list reviewed and updated with the most current plan of care details and appropriate orders placed. Relevant counseling for the gestational age provided. Continue routine care and follow up unless otherwise noted in visit notes/problem list details OB Flowsheet Initial Weight: 267 lb Date -?-?-?-?-?-?-?-?-?-?-?-?- EGA Weight BP Urine Prot -?-?-?-?-?-?-?-?-?-?--?-?- Glucose FHR FuHt Pres Dilation -?-?-?-?-?-?-?-?-?-?-?-?- Effaced St Visit Note 03/02/24 -?-?-?-?-?-?-?-?-?-?-?-?- 9w 5d 267 lb 8 oz (+8 oz) -?-?-?-?-?-?-?-?-?-?-?-?- 180 -?-?-?-?-?-?-?-?-?-?-?-?- KW- CRL cons wit h dates. undecided on NIPT- will call office if decides she wants this. 03/30/24 -?-?-?-?-?-?-?-?-?-?-?-?- 13w 5d 272 lb 4 oz (+5 lb 4 oz) 106/77 Negative -?-?-?-?-?-?-?-?-?-?-?-?- Negative 153 -?-?-?-?-?-?-?-?-?-?-?-?- Kw- no vb/crampi ng. using cpap and feeling better. anatomy US ordered. labs today. Kw- no vb/cramping. using cp ap and feeling better. anatomy US ordered. labs today. AFP discussed 05/25/24 -?-?-?-?-?-?-?-?-?-?-?-?- 21w 5d 284 lb (+17 lb) 125/83 Negative -?-?-?-?-?-?-?-?-?-?-?-?- Negative 145 -?-?-?-?-?-?-?-?-?-?-?-?- KW- no vb/lof/ct x. normal anatomy US. Discussed growth US and BPPS. 28 week labs discussed. 06/22/24 -?-?-?-?-?-?-?-?-?-?-?-?- 25w 5d 290 lb 4 oz (+23 lb 4 oz) 132/77 -?-?-?-?-?-?-?-?-?-?-?-?- 145 -?-?-?-?-?-?-?-?-?-?-?-?- KW- no vb/lof/ct x. good fm. 28 week labs today 07/06/24 -?-?-?-?-?-?-?-?-?-?-?-?- 27w 5d 292 lb (+25 lb) 138/82 Negative -?-?--?-?-?-?-?-?-?-?-?-?- Negative 140 27 -?-?-?-?-?-?-?-?-?-?-?-?- LC- no vb/ctx/lo f. good fm. all fastings >95 except 1. to start Metformin 500mg qHS. all PP under 120 except x1. to schedule growth scans 07/20/24 -?-?-?-?-?-?-?-?-?-?-?-?- 29w 5d 297 lb (+30 lb) 121/65 Negative -?-?-?-?-?-?-?-?-?-?-?-?- Negative 140 29 -?-?-?-?-?-?-?-?-?-?-?-?- LC - fasting elevated, just increased metformin to 1500 daily on tuesday to reeval on tuesday. as fasting is good today and all pp yesterday good per SM. 07/23/24 -?-?-?-?-?-?-?-?-?-?-?-?- 30w 1d 294 lb 6 oz (+27 lb 6 oz) 129/84 Negative -?-?-?-?-?--?-?-?-?-?-?-?- Negative 140 -?-?-?-?-?-?-?-?-?-?-?-?- KW- fastings ove r the weekend were under 95 PP were all under 120. will continue to monitor and come back later in the week to review numbers. Is calling nutrition to get set up. FMLA papers to triage 08/02/24 -?-?-?-?-?-?-?-?-?-?-?-?- 31w 4d 296 lb 8 oz (+29 lb 8 oz) 128/84 Negative -?-?-?-?-?-?-?-?-?-?-?-?- Negative 141 33 -?-?-?-?-?-?-?-?-?-?-?-?- JV- fasting gluc ose levels are elevated despite use of 1500mg of metformin daily. will add 15 units of lantus. start twice weekly bpp's for obesity and uncontrolled dm. has growth scan next week also. needs to see physicians more 08/17/24 -?-?-?-?-?-?-?-?-?-?-?-?- 33w 5d 307 lb 2 oz (+40 lb 2 oz) 153/91 117/90 134/84 Negative -?-?-?-?-?-?-?-?-?-?-?-?- Negative 143 33 -?-?-?-?-?-?-?-?-?-?-?-?- LC- at 17u, all under 95 except 1 after adjustment. all pp good. denies reese/visual changes/ruq pain. LC- at 17u, all under 95 exc ept 1 after adjustment. all pp good. denies reese/visual changes/ruq pain, but having increased swelling. obtaining pec labs. 08/31/24 -?-?-?-?-?-?-?-?-?-?-?-?- 35w 5d 317 lb 2 oz (+50 lb 2 oz) 148/96 Trace -?-?-?-?-?-?-?-?-?-?-?-?- Negative -?-?-?-?-?-?-?-?-?-?-?-?- SM- to l and d f or evaluation 09/07/24 -?-?-?-?-?-?-?-?-?-?-?-?- 36w 5d 318 lb (+51 lb) 180/120 2+ -?-?-?-?-?-?-?-?-?-?-?-?- Negative -?-?-?-?-?-?-?-?-?-?-?-?- LC- repeat bp 18 0/120 with fuzzy headache to L&D for mag, labs, labetolol HTN protocol. plan c/s this afternoon with SM. LC- repeat bp 180/120 with fuzzy headache to L&D for mag, labs, labetolol HTN protocol. plan c/s this afternoon with SM. GBS not obtained due to urgency. NST FHR Rate Baby A Baseline: 140 Variability:: Moderate Accelerations:: 15 x 15 Decelerations:: None NST Reactive:: Yes FHR Category:: Category I Uterine Activity:: none ROS Constitutional Constitutional: Reports systems reviewed and no addt'l complaints, except as documented ENT HEENT: Reports systems reviewed and no addt'l complaints, except as documented Cardiovascular Cardiovascular: Reports systems reviewed and no addt'l complaints, except as documented Respiratory/Chest Respiratory/Chest: Reports systems reviewed and no addt'l complaints, except as documented Gastrointestinal Gastrointestinal: Reports systems reviewed and no addt'l complaints, except as documented and nausea; Denies abdominal pain Genitourinary Genitourinary: Reports systems reviewed and no addt'l complaints, except as documented, contractions Details: present and frequency (regular ) and movement Details: present Musculoskeletal Musculoskeletal: Reports systems reviewed and no addt'l complaints, except as documented Integumentary Integumentary: Reports as per HPI Neurologic Neurologic: Reports systems reviewed and no addt'l complaints, except as documented Endocrine Endocrinology: Reports systems reviewed and no addt'l complaints, except as documented Vital Signs Vital Signs Vital Signs: 09/07/24 11:00 09/07/24 11:00 09/07/24 11:00 Temperature Temperature Source Pulse Rate 93 89 Respiratory Rate Respiratory Effort Respiratory Depth Respiratory Pattern Blood Pressure 180/100 H Blood Pressure Mean BP Systolic 180 BP Diastolic 100 Blood Pressure Source Blood Pressure Position Blood Pressure Location Baseline BP Pulse Ox Oxygen Delivery Method 09/07/24 11:00 09/07/24 11:06 09/07/24 11:06 Temperature Temperature Source Pulse Rate 100 Respiratory Rate Respiratory Effort Respiratory Depth Respiratory Pattern Blood Pressure Blood Pressure Mean BP Systolic BP Diastolic Blood Pressure Source Blood Pressure Position Blood Pressure Location Baseline BP Pulse Ox 97 98 Oxygen Delivery Method 09/07/24 11:11 09/07/24 11:11 09/07/24 11:16 Temperature Temperature Source Pulse Rate 94 Respiratory Rate Respiratory Effort Respiratory Depth Respiratory Pattern Blood Pressure 169/91 H Blood Pressure Mean BP Systolic 169 BP Diastolic 91 Blood Pressure Source Blood Pressure Position Blood Pressure Location Baseline BP Pulse Ox 98 Oxygen Delivery Method 09/07/24 11:16 09/07/24 11:31 09/07/24 11:31 Temperature Temperature Source Pulse Rate 96 90 Respiratory Rate Respiratory Effort Respiratory Depth Respiratory Pattern Blood Pressure 153/95 H Blood Pressure Mean BP Systolic 153 BP Diastolic 95 Blood Pressure Source Blood Pressure Position Blood Pressure Location Baseline BP Pulse Ox Oxygen Delivery Method 09/07/24 11:40 09/07/24 11:40 09/07/24 11:40 Temperature Temperature Source Temporal Pulse Rate 89 Respiratory Rate Respiratory Effort Respiratory Depth Respiratory Pattern Blood Pressure Blood Pressure Mean BP Systolic BP Diastolic Blood Pressure Source Blood Pressure Position Blood Pressure Location Baseline BP Pulse Ox 97 Oxygen Delivery Method 09/07/24 11:40 09/07/24 11:43 09/07/24 11:43 Temperature 98.1 F Temperature Source Temporal Pulse Rate 88 88 Respiratory Rate 18 Respiratory Effort Normal Respiratory Depth Normal Respiratory Pattern Normal Blood Pressure 149/83 H 149/83 H Blood Pressure Mean 105 BP Systolic 149 BP Diastolic 83 Blood Pressure Source Monitor Blood Pressure Position Semi-Fowlers Blood Pressure Location Right Arm Baseline BP Pulse Ox 98 Oxygen Delivery Method Room Air 09/07/24 11:45 09/07/24 11:45 09/07/24 11:50 Temperature Temperature Source Pulse Rate 98 93 Respiratory Rate Respiratory Effort Respiratory Depth Respiratory Pattern Blood Pressure Blood Pressure Mean BP Systolic BP Diastolic Blood Pressure Source Blood Pressure Position Blood Pressure Location Baseline BP Pulse Ox 97 Oxygen Delivery Method 09/07/24 11:50 09/07/24 11:55 09/07/24 11:55 Temperature 98.3 F Temperature Source Temporal Temporal Pulse Rate 95 Respiratory Rate 19 H Respiratory Effort Normal Respiratory Depth Normal Respiratory Pattern Normal Blood Pressure 148/86 H Blood Pressure Mean 106 BP Systolic BP Diastolic Blood Pressure Source Monitor Blood Pressure Position Semi-Fowlers Blood Pressure Location Right Arm Baseline BP Pulse Ox 98 98 Oxygen Delivery Method Room Air 09/07/24 11:56 09/07/24 11:56 09/07/24 11:56 Temperature Temperature Source Pulse Rate 95 93 Respiratory Rate Respiratory Effort Respiratory Depth Respiratory Pattern Blood Pressure 148/86 H Blood Pressure Mean BP Systolic 148 BP Diastolic 86 Blood Pressure Source Blood Pressure Position Blood Pressure Location Baseline BP Pulse Ox Oxygen Delivery Method 09/07/24 11:56 09/07/24 13:31 09/07/24 13:31 Temperature Temperature Source Pulse Rate 93 Respiratory Rate Respiratory Effort Respiratory Depth Respiratory Pattern Blood Pressure 109/67 Blood Pressure Mean BP Systolic 109 BP Diastolic 67 Blood Pressure Source Blood Pressure Position Blood Pressure Location Baseline BP Pulse Ox 97 Oxygen Delivery Method 09/07/24 13:31 09/07/24 13:36 09/07/24 13:36 Temperature Temperature Source Pulse Rate 101 H Respiratory Rate Respiratory Effort Respiratory Depth Respiratory Pattern Blood Pressure Blood Pressure Mean BP Systolic BP Diastolic Blood Pressure Source Blood Pressure Position Blood Pressure Location Baseline BP Pulse Ox 98 98 Oxygen Delivery Method 09/07/24 13:47 09/07/24 13:47 09/07/24 13:47 Temperature Temperature Source Pulse Rate 94 Respiratory Rate Respiratory Effort Respiratory Depth Respiratory Pattern Normal Blood Pressure 135/80 H Blood Pressure Mean BP Systolic 135 BP Diastolic 80 Blood Pressure Source Blood Pressure Position Blood Pressure Location Baseline BP 109/67 Pulse Ox Oxygen Delivery Method 09/07/24 13:52 09/07/24 13:52 09/07/24 14:01 Temperature 96.6 F L Temperature Source Temporal Temporal Pulse Rate 94 Respiratory Rate 18 Respiratory Effort Normal Non-Labored Respiratory Depth Normal Respiratory Pattern Blood Pressure 135/80 H 126/81 H Blood Pressure Mean 98 BP Systolic 126 BP Diastolic 81 Blood Pressure Source Monitor Blood Pressure Position Semi-Fowlers Blood Pressure Location Right Arm Baseline BP Pulse Ox 98 Oxygen Delivery Method Room Air 09/07/24 14:01 09/07/24 14:02 09/07/24 14:02 Temperature 97.5 F L Temperature Source Temporal Temporal Pulse Rate 88 88 Respiratory Rate 16 Respiratory Effort Respiratory Depth Respiratory Pattern Blood Pressure 126/81 H Blood Pressure Mean 96 BP Systolic BP Diastolic Blood Pressure Source Monitor Blood Pressure Position Semi-Fowlers Blood Pressure Location Right Arm Baseline BP 109/67 Pulse Ox 99 Oxygen Delivery Method Room Air 09/07/24 14:16 09/07/24 14:16 09/07/24 14:17 Temperature Temperature Source Temporal Pulse Rate 93 Respiratory Rate Respiratory Effort Respiratory Depth Respiratory Pattern Blood Pressure 131/78 H Blood Pressure Mean BP Systolic 131 BP Diastolic 78 Blood Pressure Source Blood Pressure Position Blood Pressure Location Baseline BP Pulse Ox Oxygen Delivery Method 09/07/24 14:17 09/07/24 14:31 09/07/24 14:31 Temperature 97.5 F L Temperature Source Temporal Pulse Rate 93 93 Respiratory Rate 16 Respiratory Effort Respiratory Depth Respiratory Pattern Blood Pressure 131/78 H 129/79 H Blood Pressure Mean 95 BP Systolic 129 BP Diastolic 79 Blood Pressure Source Monitor Blood Pressure Position Semi-Fowlers Blood Pressure Location Right Arm Baseline BP 109/67 Pulse Ox 100 Oxygen Delivery Method Room Air 09/07/24 14:32 09/07/24 14:32 09/07/24 14:46 Temperature 97.5 F L Temperature Source Temporal Temporal Pulse Rate 93 Respiratory Rate 16 Respiratory Effort Respiratory Depth Respiratory Pattern Blood Pressure 129/79 H 138/80 H Blood Pressure Mean 95 BP Systolic 138 BP Diastolic 80 Blood Pressure Source Monitor Blood Pressure Position Semi-Fowlers Blood Pressure Location Right Arm Baseline BP 109/67 Pulse Ox 98 Oxygen Delivery Method Room Air 09/07/24 14:46 09/07/24 14:47 09/07/24 15:01 Temperature Temperature Source Pulse Rate 89 89 Respiratory Rate 16 Respiratory Effort Respiratory Depth Respiratory Pattern Blood Pressure 138/80 H 127/68 H Blood Pressure Mean 99 BP Systolic 127 BP Diastolic 68 Blood Pressure Source Monitor Blood Pressure Position Semi-Fowlers Blood Pressure Location Right Arm Baseline BP 109/67 Pulse Ox 97 Oxygen Delivery Method Room Air 09/07/24 15:01 09/07/24 15:02 09/07/24 15:02 Temperature 97.9 F Temperature Source Temporal Temporal Pulse Rate 96 96 Respiratory Rate 19 H Respiratory Effort Respiratory Depth Respiratory Pattern Blood Pressure 127/68 H Blood Pressure Mean 87 BP Systolic BP Diastolic Blood Pressure Source Monitor Blood Pressure Position Semi-Fowlers Blood Pressure Location Right Arm Baseline BP 109/67 Pulse Ox 95 Oxygen Delivery Method Room Air 09/07/24 15:17 09/07/24 15:17 09/07/24 15:17 Temperature Temperature Source Temporal Pulse Rate 93 Respiratory Rate Respiratory Effort Respiratory Depth Respiratory Pattern Blood Pressure 137/81 H Blood Pressure Mean BP Systolic 137 BP Diastolic 81 Blood Pressure Source Blood Pressure Position Blood Pressure Location Baseline BP Pulse Ox Oxygen Delivery Method 09/07/24 15:17 09/07/24 15:32 09/07/24 15:32 Temperature 97.8 F Temperature Source Temporal Pulse Rate 93 94 Respiratory Rate 16 Respiratory Effort Respiratory Depth Respiratory Pattern Blood Pressure 137/81 H 146/75 H Blood Pressure Mean 99 BP Systolic 146 BP Diastolic 75 Blood Pressure Source Monitor Blood Pressure Position Semi-Fowlers Blood Pressure Location Right Arm Baseline BP 109/67 Pulse Ox 96 Oxygen Delivery Method Room Air 09/07/24 15:32 09/07/24 15:47 09/07/24 15:47 Temperature Temperature Source Pulse Rate 94 90 Respiratory Rate 18 Respiratory Effort Respiratory Depth Respiratory Pattern Blood Pressure 146/75 H 126/66 H Blood Pressure Mean 98 BP Systolic 126 BP Diastolic 66 Blood Pressure Source Monitor Blood Pressure Position Semi-Fowlers Blood Pressure Location Right Arm Baseline BP 109/67 Pulse Ox 96 Oxygen Delivery Method Room Air 09/07/24 15:47 09/07/24 15:47 09/07/24 16:47 Temperature 98.6 F Temperature Source Temporal Temporal Pulse Rate 90 95 Respiratory Rate 16 16 Respiratory Effort Respiratory Depth Respiratory Pattern Blood Pressure 126/66 H 125/68 H Blood Pressure Mean 86 87 BP Systolic BP Diastolic Blood Pressure Source Monitor Monitor Blood Pressure Position Semi-Fowlers Semi-Fowlers Blood Pressure Location Right Arm Right Arm Baseline BP 109/67 Pulse Ox 96 98 Oxygen Delivery Method Room Air Room Air 09/07/24 16:49 09/07/24 16:49 09/07/24 17:49 Temperature Temperature Source Pulse Rate 95 Respiratory Rate Respiratory Effort Respiratory Depth Respiratory Pattern Blood Pressure 125/68 H 145/80 H Blood Pressure Mean BP Systolic 125 145 BP Diastolic 68 80 Blood Pressure Source Blood Pressure Position Blood Pressure Location Baseline BP Pulse Ox Oxygen Delivery Method 09/07/24 17:49 Temperature Temperature Source Pulse Rate 106 H Respiratory Rate Respiratory Effort Respiratory Depth Respiratory Pattern Blood Pressure Blood Pressure Mean BP Systolic BP Diastolic Blood Pressure Source Blood Pressure Position Blood Pressure Location Baseline BP Pulse Ox Oxygen Delivery Method Weight Weight: 315 lb 0.649 oz Body Mass Index (BMI) 55.8 Physical Exam Const alert, oriented x3 and healthy appearing Constitutional Narrative: uncomfortable with contractions HEENT normocephalic and moist oral mucous membranes Head and Scalp: atraumatic Neck full ROM, no lymphadenopathy, supple and thyroid normal General: trachea midline Thyroid: thyroid normal Lymph Lymphatic: no lymphadenopathy noted Chest inspection of chest normal Resp normal respiratory effort Cardio regular rate GI soft to palpation and non-tender GI Narrative: gravid Inspection: gravid external exam normal Bimanual Exam - Vag & Uterus: uterus non-tender Manual OB Exam: estimated gestational size appropriate, presentation breech, dilated, effaced and station Extremity normal to inspection General Extremity: Negative for edema Skin no rashes or lesions noted Neuro deep tendon reflexes 2+ bilaterally Motor Exam: strength 5/5 throughout and clonus absent Psych mental status grossly normal Labs Labs Labs: Blood Type O POSITIVE Antibody Screen NEGATIVE Hct 35.4 % (37-47) L Hgb 12.0 g/dL (12.0-15.0) Syphilis Total Ab Nonreactive (Nonreactive) Rubella IgG Antibody Reactive (Nonreactive) Hep Bs Antigen Non-Reactive (Nonreactive) Hepatitis C Antibody Non-Reactive (Nonreactive) Chlamydia DNA (ADALID) Negative (Negative) N.gonorrhoeae DNA (ADALID) Negative (Negative) HIV 1&2 Antibody Non-Reactive (Nonreactive) Glucose 1 Hr 50 gm 169 mg/dL (70-140) H Gest Glucose Tolerance MG/DL Group B Strep DNA Negative (Negative) Rhogam given: No Assessment & Plan (1) Preeclampsia, severe: (2) Breech presentation of fetus: COMMENT: at 33 weeks - rescan 35- 36 weeks (3) Gestational diabetes mellitus (GDM) affecting , antepartum: COMMENT: nutrition consult and testing 4x daily. metformin 500mg AM + 1,000PM on 07/18 lantus 15 units hs - twice weekly nsts and growth at 32 and 36 weeks. deliver no later than 39 weeks. (4) Sleep apnea: COMMENT: c-pap (5) Obesity during : COMMENT: BMI 47. HgbA1c nl. encouraged healthy weight gain. recommend growth US 32 and 36 weeks w/MFM, weekly BPP 34 weeks on (6) LGSIL on Pap smear of cervix: COMMENT: 2015- no follow up 2023 NOB LSIL and +HPV. Colpo done, CIN1 visually. repeat pap PP. (7) Supervision of high-risk : COMMENT: PRR,, JANI 09/30/24, Leticia Kitchen Cole (8) : QUALIFIERS: Weeks of gestation: 36 weeks Qualified Code(s): Z3A.36 - 36 weeks gestation of COMMENT: normal anatomy, discussed genetic, ntd, & carrier testing declined. PLAN: Plan proceed with LTCS for BReech presentationa nd severe preeclampsia, start labetalol hypertensive protocl, magnesium
--- NOTE | 2024-09-07 18:18 | OP.PCM_ITS ---
Assessment & Plan (1) Preeclampsia, severe: (2) Breech presentation of fetus: COMMENT: at 33 weeks - rescan 35- 36 weeks (3) Gestational diabetes mellitus (GDM) affecting , antepartum: COMMENT: nutrition consult and testing 4x daily. metformin 500mg AM + 1,000PM on 07/18 lantus 15 units hs - twice weekly nsts and growth at 32 and 36 weeks. deliver no later than 39 weeks. (4) Supervision of high-risk : COMMENT: PRR,, JANI 09/30/24, Leticia Kitchen Cole (5) : QUALIFIERS: Weeks of gestation: 36 weeks Qualified Code(s): Z3A.36 - 36 weeks gestation of COMMENT: normal anatomy, discussed genetic, ntd, & carrier testing declined. Maternal Data Information JANI Calculator Estimated Delivery Date Method Current WG Current Estimate 09/30/24 LMP (Certain) 36w 5d Other Estimates 10/03/24 Ultrasound #1 36w 2d Final JANI Source: LMP Operative Report (OB) Cecarean Details Procedure Type: low transverse Date of Procedure: 09/07/24 Procedure Start Time: 12:40 Procedure Stop Time: 13:15 Pre-Operative Diagnosis: Other Other Pre-Operative diagnosis: see a/p comments Post-Operative Diagnosis: Same as Pre-operative diagnosis Type of Anesthesia: Spinal Special Medications: none Antibiotic Given: Ancef 2 grams IV x1 Drain: Oneil to straight drain Estimated Blood Loss: 900 Fluids Replaced: crystalloid Findings Description of surgery: . Spinal anesthesia was placed without difficulty. Oneil catheter was placed. The patient was placed in the dorsal supine position with leftward tilt. Patient was prepped and draped in the normal sterile fashion. Pfannenstiel skin incision was made with the scalpel and carried through to the underlying layer of fascia with the scalpel. Fascia was nicked in the midline and the incision extended laterally. The rectus bellies were dissected off superiorly and inferiorly with out complication both sharply and bluntly. The peritoneum was entered digitally. The incision was stretched and a low transverse uterine incision was made with the scalpel. The buttox was delivered atraumatically and the right and left legs were swept anteriorly and delivered, followed by the body and the arms which were swept anteriorly and delivered. Gentle traction was placed on the mentum to flex the head which was delivered without complication. The cord was clamped and cut and the was handed off to awaiting nurse. The placenta was delivered spontaneously immediately following and was noted to be intact and have a three-vessel cord. The uterus was exteriorized cleared of all clots and debris, and the incision was closed in a single layer closure using #1 Monocryl. The ovaries and fallopian tubes were noted to be within normal limits. The uterus was returned to the maternal abdomen and gutters were cleared of all clots and debris. The peritoneum was closed with 3-0 Monocryl in a running fashion. Gloves were changed prior to fascial closure. Fascia was closed with 0 PDS in a running fashion. Subcutaneous tissue was copiously irrigated and the skin was closed with 3-0 Monocryl in a subcuticular fashion. Mepilex dressing was applied without complication. Patient was taken to recovery in stable condition. Surgical findings: nl uterus tubes ovaries Presentation: Vertex Amniotic Membrane Rupture Type: Artificial Amniotic Fluid Description: Clear Specimen collected: Yes Description of specimen(s) removed: placenta and baby Cord Vessel Description: 3 Vessels Delayed Cord Clamping: Yes County Engineer aeronautical design engineer: Yes Lens Matcher: Asad Steele Tasks completed by first calender worker: Opening & closing, Retracting and Other (assisting in delivery of the ) Additional nursing home assistant administrator?: No Complications Complications: No Admit VTE Documentation VTE Present on Admission: No VTE Mechan Device Prophylaxis: SCD's Procedures Urinary/Genital [id number]: [id number] Delivery [facility]
[2024-09-07] MEDS: Labetalol 100 MG Tablet PO (23:12)
[2024-09-07 23:44] LABS: Bedside Glucose 106 mg/dL (74-106)
[2024-09-08] VITALS (27 sets, daily range): BP systolic 127–148; BP diastolic 67–92; PULSE 82–105; RESP 16–18; TEMP 36.4–36.9; O2SAT 96–98
[2024-09-08] MEDS: Enoxaparin 40 MG/0.4 ML Syringe SC ×2 (00:33→12:21)
[2024-09-08] MEDS: Acetaminophen 500 MG Tablet 1000 MG PO ×4 (00:33→18:42)
[2024-09-08] MEDS: Ketorolac 30 MG/ML Syringe IV ×2 (03:07→08:45)
[2024-09-08 06:03] LABS: Bedside Glucose 89 mg/dL (74-106)
[2024-09-08 07:22] LABS: Hematocrit 33.9 % (37-47); Hemoglobin 11.2 g/dL (12.0-15.0); Mean Corpuscular Hgb 29.6 pg (27.0-32.0); Mean Corpuscular Volume 89.4 fL (81-99); Mean Platelet Vol. 10.8 fl (6.2-12.0); Platelet Count 288 K/mm3 (150-450); RBC Distribution Width SD 48.8 fl (35.1-43.9); Red Blood Count 3.79 M/mm3 (4.2-5.4); White Blood Count 12.4 K/mm3 (4.4-11.0)
[2024-09-08] MEDS: 0.9% Saline Lock 10 ML Syringe IV (08:45)
[2024-09-08] MEDS: Magnesium Sulfate 20 GM/500 ML BAG IV (08:51)
[2024-09-08] MEDS: Labetalol 100 MG Tablet PO ×2 (10:12→22:18)
--- NOTE | 2024-09-08 10:48 | PCM.PN.CNM ---
Subjective Subjective Patient doing well, complain of headache 2/10 with ambulation, decreases when laying down. Tolerating PO. Denies chest pain, shortness of breath, calf pain/swelling, fevers, chills, lightheadedness. Objective Data Objective Data Vital Signs: Vital Signs Temp Pulse Resp BP Pulse Ox O2 Del Method 97.7 F L 92 16 145/92 H 98 Room Air 09/08/24 10:08 09/08/24 10:09 09/08/24 10:08 09/08/24 10:09 09/08/24 10:09 09/08/24 10:08 Oxygen Delivery Method Room Air Weight: 315 lb 0.649 oz Body Mass Index (BMI) 55.8 Intake & Output: Intake and Output for Last 24 Hours 09/06/24 09/07/24 09/08/24 23:59 23:59 23:59 Intake Total 2395.39 / 2395.39 912.5 / 912.5 Output Total 1275 / 1275 2600 / 2600 Balance 1120.39 / 1120.39 -1687.5 / -1687.5 Lab / Micro Data 09/08/24 07:15 09/07/24 11:20 Labs: Laboratory Results - last 24 hr 09/07/24 11:20: WBC 13.1 H, RBC 4.03 L, Hgb 12.0, Hct 35.4 L, MCV 87.8, MCH 29.8, MCHC 33.9, RDW Std Deviation 47.1 H, RDW Coeff of Martin 14.6, Plt Count 308, MPV 11.2, Creatinine 0.55 L, Est GFR (MDRD) Non-Af 126, Uric Acid 6.5 H, AST 26, ALT 19, Syphilis Total Ab Nonreactive, Blood Type O POSITIVE, Antibody Screen NEGATIVE 09/07/24 11:30: POC Glucose 83 09/07/24 15:07: POC Glucose 77 09/07/24 23:24: POC Glucose 106 09/07/24 : U Random Total Protein 71.4 H, Urine Creatinine 153.00, Protein/Creatinin Ratio 467 H 09/08/24 05:41: POC Glucose 89 09/08/24 07:15: WBC 12.4 H, RBC 3.79 L, Hgb 11.2 L, Hct 33.9 L, MCV 89.4, MCH 29.6, MCHC 33.0, RDW Std Deviation 48.8 H, RDW Coeff of Martin 15.0 H, Plt Count 288, MPV 10.8 Radiography Diagnostic Testing: Radiology Impression Biophysical Profile Ultrasound 09/07/24 09:17 IMPRESSION: Normal biophysical profile with a score of 8/8. Reading Location: [place] [address] Physical Exam Const alert and oriented x3 Chest inspection of chest normal and inspection of breasts normal Resp normal respiratory effort, normal air movement and clear to auscultation bilaterally Effort and Inspection: able to speak in complete sentences Cardio regular rate and regular rhythm GI normal to inspection, nondistended, normoactive bowel sounds Auscultation: normoactive bowel sounds Bladder / Kidney Exam: catheter in place urethral Uterus Palpation: uterus fundus firm Extremity normal to inspection and no pedal edema Skin Skin Narrative: dressing c/d/i Neuro deep tendon reflexes 2+ bilaterally Speech: speech normal Motor Exam: strength 5/5 throughout; Negative for clonus present Deep Tendon Reflexes: Rt Patellar (L4): 2+ and Lt Patellar (L4): 2+ Psych mental status grossly normal Assessment & Plan (1) Preeclampsia, severe: COMMENT: magnesium 24 hour pp. labetolol PO. BP 140s/80-90s overnight (2) delivery delivered: COMMENT: severe PEC, breech, cs, girl SM (3) Gestational diabetes mellitus (GDM) affecting , antepartum: COMMENT: nutrition consult and testing 4x daily. metformin 500mg AM + 1,000PM on 07/18 lantus 15 units hs PLAN: insulin sliding scale, currently no insulin needed fasting bs, 2 hour pp. PLAN: Plan s/p LTCS PPD # 1 1. routine post care 2. breast feeding- support given 3. rh positive 4. rubella immune
[2024-09-08] MEDS: Senna/Docusate Sodium 1 Tablet PO (12:21)
[2024-09-08 12:44] LABS: Bedside Glucose 103 mg/dL (74-106)
[2024-09-08] MEDS: Naproxen 500 MG Tablet PO ×2 (14:52→22:18)
[2024-09-08 15:25] LABS: Bedside Glucose 98 mg/dL (74-106)
[2024-09-08 19:02] LABS: Bedside Glucose 115 mg/dL (74-106)
[2024-09-08 22:44] LABS: Bedside Glucose 107 mg/dL (74-106)
[2024-09-09] VITALS (36 sets, daily range): BP systolic 134–176; BP diastolic 69–94; PULSE 77–104; RESP 16–18; TEMP 36.1–36.8; O2SAT 80–99
[2024-09-09] MEDS: Enoxaparin 40 MG/0.4 ML Syringe SC ×2 (01:16→12:38)
[2024-09-09] MEDS: Acetaminophen 500 MG Tablet 1000 MG PO ×2 (01:17→06:29)
[2024-09-09] MEDS: 0.9% Saline Lock 10 ML Syringe IV ×2 (01:17→18:23)
--- NOTE | 2024-09-09 02:37 | NURSING ---
Pt c/o intermittent PURI overnight, provider made aware at start of this RN shift. Pt states pain as high as 8/10 when standing quickly or sitting up in bed. States it improves with laying and tylenol does not improve pain. Pain at this time 4-5/10 per pt report. Plan to notify RN in am and possibly have anesthesia evaluate pt if necessary for spinal PURI. RN provided education.
[2024-09-09] MEDS: Naproxen 500 MG Tablet PO ×3 (06:29→23:38)
[2024-09-09 06:52] LABS: Bedside Glucose 94 mg/dL (74-106)
[2024-09-09] MEDS: oxyCODONE 5 MG Tablet PO ×3 (08:53→16:20)
[2024-09-09] MEDS: Labetalol 100 MG Tablet PO ×2 (10:06→21:57)
--- NOTE | 2024-09-09 10:43 | PCM.PN.CNM ---
Subjective Subjective Patient doing well, mild headaches when standing, improving with layind down flat. Tolerating PO. Ambulating and voiding without difficulty. Feeding well. Denies chest pain, shortness of breath, calf pain/swelling, fevers, chills, lightheadedness. Objective Data Objective Data Vital Signs: Vital Signs Temp Pulse Resp BP Pulse Ox O2 Del Method 97.8 F 100 16 146/81 H 98 Room Air 09/09/24 10:04 09/09/24 10:04 09/09/24 10:04 09/09/24 10:04 09/09/24 10:04 09/09/24 10:04 Oxygen Delivery Method Room Air Weight: 315 lb 0.649 oz Body Mass Index (BMI) 55.8 Intake & Output: Intake and Output for Last 24 Hours 09/07/24 09/08/24 09/09/24 23:59 23:59 23:59 Intake Total 2395.39 / 2395.39 1741.67 / 1741.67 Output Total 1275 / 1275 4350 / 4350 Balance 1120.39 / 1120.39 -2608.33 / -2608.33 Lab / Micro Data 09/08/24 07:15 09/07/24 11:20 Labs: Laboratory Results - last 24 hr 09/08/24 12:11: POC Glucose 103 09/08/24 14:54: POC Glucose 98 09/08/24 18:40: POC Glucose 115 H 09/08/24 22:22: POC Glucose 107 H 09/09/24 06:31: POC Glucose 94 Physical Exam Const alert and oriented x3 Chest inspection of chest normal and inspection of breasts normal Resp normal respiratory effort, normal air movement and clear to auscultation bilaterally Effort and Inspection: able to speak in complete sentences Cardio regular rate and regular rhythm GI normal to inspection, nondistended, normoactive bowel sounds Auscultation: normoactive bowel sounds Bladder / Kidney Exam: catheter in place urethral Uterus Palpation: uterus fundus firm Extremity normal to inspection and no pedal edema Skin Skin Narrative: dressing c/d/i Neuro deep tendon reflexes 2+ bilaterally Speech: speech normal Motor Exam: strength 5/5 throughout; Negative for clonus present Deep Tendon Reflexes: Rt Patellar (L4): 2+ and Lt Patellar (L4): 2+ Psych mental status grossly normal Assessment & Plan (1) delivery delivered: COMMENT: severe PEC, breech, cs, girl SM (2) Preeclampsia, severe: COMMENT: magnesium 24 hour pp. labetolol PO bid. BP 140s/80-90s overnight. PLAN: -repeat cbc and cmp (3) Gestational diabetes mellitus (GDM) affecting , antepartum: COMMENT: nutrition consult and testing 4x daily. metformin 500mg AM + 1,000PM on 07/18 lantus 15 units hs (4) Headache: COMMENT: spinal headache vs PEC headache PLAN: -anesthesia consult -fiorcet -plan to increase labetolol to tid if BP remains upper 140s/90 with headaches if fiorcet does not improve PLAN: Plan s/p LTCS PPD # 2 1. routine post care 2. breast feeding- support given 3. rh positive 4. rubella immune
[2024-09-09 11:07] LABS: Absolute Lymphocyte Count 2.01 X10^3/uL (0.83-4.51); Absolute Neutrophil Count 7.3 X10^3/uL (2.0-7.7); Basophil# 0.05 X10^3/uL; Basophil% 0.5 % (0-1); Eosinophil# 0.12 X10^3/uL; Eosinophils% 1.2 % (0-5); Hematocrit 31.2 % (37-47); Hemoglobin 10.3 g/dL (12.0-15.0); Lymphocyte # 2.01 X10^3/ul (0.83-4.51); Lymphocyte % 19.8 % (19-41); Mean Corpuscular Hgb 29.6 pg (27.0-32.0); Mean Corpuscular Volume 89.7 fL (81-99); Mean Platelet Vol. 10.5 fl (6.2-12.0); Monocyte# 0.55 X10^3/uL; Monocyte% 5.4 % (0-10); NRBC Flagged by Analyzer 0 % (0-5); Neutrophil # 7.33 X10^3/uL (2.7-7.7); Neutrophil % 72.3 % (47-70); Platelet Count 277 K/mm3 (150-450); RBC Distribution Width CV 15.1 % (11.6-14.6); RBC Distribution Width SD 49.4 fl (35.1-43.9); Red Blood Count 3.48 M/mm3 (4.2-5.4); White Blood Count 10.1 K/mm3 (4.4-11.0)
[2024-09-09 11:30] LABS: AST(SGOT) 22 U/L (<=31); Alanine Aminotransfer ALT/SGPT 17 U/L (<=34); Creatinine, Serum 0.63 mg/dL (0.70-1.20); EST Glomerular Filtration Rate 122 (>60); Estimated Creatinine Clearance 178.15 ml/min (50-250); Uric Acid 7.1 mg/dL (2.6-6.0)
[2024-09-09] MEDS: Acetaminophen/Butalbital/Caffe 1 Tablet PO (12:38)
[2024-09-09] MEDS: Acetaminophen 325 MG Tablet 650 MG PO (12:38)
[2024-09-09 13:15] LABS: Bedside Glucose 107 mg/dL (74-106)
[2024-09-09 16:55] LABS: Bedside Glucose 102 mg/dL (74-106)
[2024-09-09] MEDS: 0.9% Normal Saline (500mL Bag) 500 ML 999 ML IV (18:23)
--- NOTE | 2024-09-09 18:50 | NURSING ---
Patient alert and oriented. Blood patch procedure explained by Bradley García CRNA at bedside. Patient consented and time out completed. Patient sitting edge of bed. Vitals obtained at 5 minute intervals throughout procedure. Patient remained alert, oriented and tolerated procedure without complaint of discomfort.
[2024-09-09] MEDS: Acetaminophen/Butalbital/Caffe 1 Tablet 2 TABLET PO (20:18)
[2024-09-09] MEDS: Acetaminophen 325 MG Tablet PO (20:18)
[2024-09-10] VITALS (14 sets, daily range): BP systolic 123–189; BP diastolic 59–92; PULSE 78–133; RESP 16; TEMP 35.7–36.6; O2SAT 89–98
[2024-09-10] MEDS: Enoxaparin 40 MG/0.4 ML Syringe SC ×2 (01:36→13:47)
[2024-09-10] MEDS: Acetaminophen/Butalbital/Caffe 1 Tablet 2 TABLET PO (02:15)
[2024-09-10] MEDS: Acetaminophen 325 MG Tablet PO ×2 (02:15→08:00)
[2024-09-10 02:46] LABS: Bedside Glucose 105 mg/dL (74-106)
[2024-09-10 06:27] LABS: Bedside Glucose 88 mg/dL (74-106)
[2024-09-10] MEDS: Naproxen 500 MG Tablet PO (07:00)
--- NOTE | 2024-09-10 08:42 | PCM.DC.SUM ---
Providers Date of Admission: 09/07/24 Primary Care Physician: No Primary Care Phys Reason For Visit: WELL BEING/PRIMARY Diagnosis Discharge Diagnosis (1) delivery delivered: Status: Acute Code(s): O82 - Encounter for delivery without indication (2) Preeclampsia, severe: Status: Acute Code(s): O14.10 - Severe pre-eclampsia, unspecified trimester (3) Gestational diabetes mellitus (GDM) affecting , antepartum: Status: Acute Code(s): O24.419 - Gestational diabetes mellitus in , unspecified control (4) Headache: Status: Acute Code(s): R51.9 - Headache, unspecified Medications at Discharge Home Medications PNV 153-FA 400 mcg-om3 35 mg-dha 25 mg-epa 5 mg-fish oil chew tablet 1 tab PO DAILY 02/29/24 blood sugar diagnostic (Blood Glucose Test strips) #120 ea 06/27/24 blood-glucose meter #1 ea 06/27/24 lancets #200 ea 06/27/24 metformin 1,000 mg tablet 1,000 mg PO .at HS GDM 07/20/24 metformin 1,000 mg tablet 500 mg PO QDAY GDM 08/31/24 naproxen 500 mg tablet 500 mg PO BID PRN pain #30 tabs 09/10/24 oxycodone-acetaminophen 5 mg-325 mg tablet (Percocet) 1 tab PO Q4H PRN pain 7 days #20 tabs 09/10/24 Hospital Course Operations None and section Procedures Intubation Summary of Care Provided Minutes Spent on Discharge: 30 Hospital Course: The patient was admitted for a primary section for breech and severe pre-e on Tuesday09/07/24. The surgery was uncomplicated however from post op day #1 to 2 her headache became worse. She was diagnosed with a spinal headache on pod #2 and a blood patch was administered. She is currently pod #3 and states that she feels much better and wants to be discharged. Physical Exam HEENT normocephalic Resp normal respiratory effort and normal air movement GI soft to palpation, non-tender and non-distended Rectal Exam: other Other Details: Incision is clean, dry, and intact no CVA tenderness Extremity normal to inspection General Extremity: edema bilateral (trace ) Weight / BMI Weight Weight: 315 lb 0.649 oz Body Mass Index (BMI) 55.8 ABG / Lab / Microbiology Data 09/09/24 11:00 09/09/24 11:00 Laboratory: Laboratory Results - last 24 hr 09/09/24 11:00: WBC 10.1, RBC 3.48 L, Hgb 10.3 L, Hct 31.2 L, MCV 89.7, MCH 29.6, MCHC 33.0, RDW Std Deviation 49.4 H, RDW Coeff of Martin 15.1 H, Plt Count 277, MPV 10.5, Immature Gran % (Auto) 0.800, Neut % (Auto) 72.3 H, Lymph % (Auto) 19.8, Robeson % (Auto) 5.4, Eos % (Auto) 1.2, Baso % (Auto) 0.5, Absolute Neuts (auto) 7.3, Absolute Lymphs (auto) 2.01, Nucleated RBC % 0, Creatinine 0.63 L, Estim Creat Clear Calc 178.15, Est GFR (MDRD) Non-Af 122, Uric Acid 7.1 H, AST 22, ALT 17 09/09/24 12:52: POC Glucose 107 H 09/09/24 16:18: POC Glucose 102 09/10/24 02:14: POC Glucose 105 09/10/24 06:07: POC Glucose 88 D/C Instructions Discharge Diet: No restrictions Discharge Activity: May Not Drive (for 1 week) May shower in (days): 1 May resume sexual activity in: 6-8 weeks Weight Bearing Status: Weight bearing as tolerated Lifting Restrictions: 10 pounds Call your doctor if your incision/area has: Sudden Increased Bleeding, Increased Pain/ Swelling, Increased Redness and Foul Smelling Discharge Call your doctor if you observe: Using more than 1 pad per hour, Shortness of breath, Dizziness, Chest pain and Calf discomfort Suture Line Care: Avoid Pulling/Pushing Change Dressing in: leave in place till F/U Cleanse incision/area with: Keep Dressing Clean & Dry DC O2, CPAP, BIPAP Needs Home O2 Discharge instructions: No Please Follow Up With: Sherley Galdamez DO When: 2 weeks Meaningful Use Info Meaningful Use Meaningful Use Diagnoses (Choose all that apply): None applicable Ischemic Stroke Statin Dosing Therapy Reference: STATIN DOSE THERAPY REFERENCE: * Patients > 75 years receive moderate or high dose statin therapy. * Patients 75 years or YOUNGER should receive HIGH intensity statin dose unless contraindicated. You will be required to document reason for non-treatment if statin daily dose does not meet guidelines. HIGH DOSE STATIN THERAPY DAILY Atorvastatin > than or = to 40 mg Rosuvastatin > than or = to 20 mg Amlodipine + Atorvastatin > than or = to 2.5/40 mg Ezetimibe + Simvastatin 10/80 mg Simvastatin 80mg Discharge Plan Admission Admit Date/Time: 09/07/24 11:06 Primary Reason for Your Visit: cearean section Attending Provider: Minoo Fontaine Primary Care Provider: Antionette Caputo Primary Discharge Orders/Prescriptions Prescriptions: New naproxen 500 mg tablet 500 mg PO BID PRN (Reason: pain) Qty: 30 0RF oxycodone-acetaminophen [Percocet] 5-325 mg tablet 1 tab PO Q4H PRN (Reason: pain) 7 Days Qty: 20 0RF Rx Instructions: 1-2 tabs q 4 hrs as needed for pain Continued PNV no.[id number] 400 mcg-35 mg- 25 mg-5 mg tablet,chewable 1 tab PO DAILY metformin 1,000 mg tablet 1,000 mg PO .at HS metformin 1,000 mg tablet 500 mg PO QDAY Patient Comments: 500 AM, 1000 HS (DME) Blood Glucose Test Strip See Rx Instructions .MEDSUPPLY Qty: 120 5RF Rx Instructions: As directed-fasting & 2 hr post meals (DME) blood-glucose meter Misc See Rx Instructions .MEDSUPPLY Qty: 1 0RF Rx Instructions: As directed- Test fasting and 2 hours after meals (DME) lancets Misc See Rx Instructions .MEDSUPPLY Qty: 200 5RF Rx Instructions: As directed-fasting & 2 hr post meals Discontinued insulin glargine [Lantus Solostar U-100 Insulin] 100 unit/mL (3 mL) insulin pen 19 unit subcut QHS Referrals / Follow Up: Care Physician,No Primary [Primary Care Provider] - Disposition Discharge Orders: Discharge Patient (Routine); Ordered 09/10/24 Ordered By: Dr. Sherley Galdamez
[2024-09-10] MEDS: Labetalol 100 MG Tablet PO (09:06)
--- NOTE | 2024-09-11 17:16 | CASEMGMT ---
Social Work - Brief Address: [address] [place] [address] [facility] [id number] [facility] Date of Referral: 09.08.24 Time of Referral: 0148 Date of Intervention: 09.11.24 Time of Intervention: 1200 Referral Site: [facility] Reason for Referral: [facility] Admission History Patient/mother of baby (MOB) delivered girl Lo Gee, who was admitted to the [facility] on 09.08.24 for issues related to hypoglycemia. Per records, MOB is to father of baby (FOB) is Cole Gee. Per medical records, SHARON now has 3 children: Lo Gee (09.07.2024), Oliva Tsai (01.27.2013) and Leticia Tsai (05.13.2014). 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 Upon admission MOB denied any type of Social drivers of health concerns (housing, transportation, utilities, food, or personal safety). No indication in records relating to any substance use or mental health concerns for either parent. Impression -This va underwriter is the social work nurse for [facility] labor and delivery unit, and for continuity of care also for the [facility]. -At approximately 1200 on 09.11.24, this va underwriter presented to [facility] to see MOB, to check on on how things are going and provide support, but learned from nursing that discharged earlier today. -No voiced concerns by nursing staff regarding parent child interactions or bonding. - No noted concerns observed in record for additional resource needs. -This va underwriter called MOB at approximately 1700 on 09.11.24 and left voice message to call this va underwriter back regarding community resource information if interested. Did not leave any identifying PHI in the VM. Plan MOB has social work nurse's name and number to call, and if MOB chooses to return call will review community resource services as indicated for new parents. MOB has been discharged home. GAGE [place] 09/11/2024
== END 2024-09-10 19:30 | disposition home or self-care (01) | DRG 787 ==
PROVIDERS: Registered Nurse; Admitting Provider Obstetrics & Gynecology; Referring Provider Obstetrics & Gynecology; Visit Provider Obstetrics & Gynecology
DX: O14.14 Severe pre-eclampsia complicating childbirth (principal); O99.354 Diseases of the nervous system complicating childbirth; O24.425 Gestational diabetes mellitus in childbirth, controlled by oral hypoglycemic drugs; G47.30 Sleep apnea, unspecified; O89.4 Spinal and epidural anesthesia-induced headache during the puerperium; Z3A.36 36 weeks gestation of pregnancy; O32.1XX0 Maternal care for breech presentation, not applicable or unspecified; Z37.0 Single live birth; Z87.891 Personal history of nicotine dependence
CPT/HCPCS: 36415; 59050; 76819; 82565; 82570; 82962; 84156; 84450; 84460; 84550; 85025; 85027; 86780; 86850; 86900; 86901; 99221; A4216; G0378; J2405

== ENCOUNTER → 2024-10-26 | Outpatient (CLI) | payer BC, SELFPAY | END | disposition home or self-care (01) | LOC: LABSPEC 11:35 | PROVIDERS: Referring Provider Obstetrics & Gynecology; Visit Provider Obstetrics & Gynecology | DX: Z12.4 Encounter for screening for malignant neoplasm of cervix (principal) | CPT/HCPCS: 87624; 88175; G0145 ==